=== PATIENT | male | born 1985 | race Hispanic/Latino ===

== ENCOUNTER 2024-08-06 08:51 | Emergency (ER) | payer SELFPAY ==
[2024-08-06] MEDS ORDERED: Lidocaine 1% (PF) 30 ML VIAL ONE (09:20)
[2024-08-06] MEDS ORDERED: HYDROcodone/Acetaminophen 10/325 mg Tablet ONE (09:48)
[2024-08-06] MEDS ORDERED: Sulfameth/Trimethoprim DS 800-160mg TAB ONE (10:14)
[2024-08-06] MEDS ORDERED: Boostrix 0.5 ML (Tdap) VIAL (>/=7 yrs of age) ONE (10:14)
== END 2024-08-06 10:50 | disposition home or self-care (01) ==
LOC: NAV ERS 08:51
DX: K61.1 Rectal abscess (principal); L02.411 Cutaneous abscess of right axilla
CPT/HCPCS: 10060; 46050; 87070; 87077; 87186; 87205; 90471; 90715